=== PATIENT | female | born 1955 | race Caucasian/White ===

== ENCOUNTER → 2016-10-11 | Day surgery (SDC) | payer OTHER ==
[~2016-10-11] VITALS: Ht 167.6 cm; Wt 86.2 kg
[~2016-10-11] MED LIST: *HYDROmorphone PF 1 MG VIAL PERIprocedural Use ONLY ONE; *ONDANSETRON 4 MG VIAL PERIprocedural Use ONLY ONE; *diphenhydrAMINE HCL 50 MG/ML VIAL PERIprocedural Use ONLY ONE; ATROPINE SULFATE 1% OPHT SOLN 2 ML BTL ONE; BALANCED SALT SOLN OPHT IRRIG 15 ML BTL ONE; CELE200C PO; CHLORHEXIDINE GLUCONATE 2 % 1 PACK (2 CLOTHS) TOPICAL PRN; DEXAMETHASONE SOD PHOS 4 MG/ML VIAL ONE; EPINEPHrine HCL (1:1000) 1 MG/ML VIAL ONE; ESTRTAB12 PO; FLAX1200 PO; INSULIN HUMAN REGULAR 1,000 UNITS/10 ML VIAL SQ PRN; LACTATED RINGER'S 1000 ML IV PRN; MELA1TAB18 PO; METOPROLOL TARTRATE 25 MG TAB PO PRN; MIDAZOLAM HCL 2 MG/2 ML VIAL ONE; ONDANSETRON HCL 4 MG/2 ML VIAL IV PUSH ONE; POVIDONE IODINE 5% (ANTISEPSIS KIT) 4 APPLICATIONS EACH NARE PRN; PROPOFOL 200 MG/20 ML AMP IV ONE; SODIUM CHLORID 0.9% 500 ML IV PRN; STERILE WATER FOR INJ 20 ML VIAL ONE; TOBRAMYCIN/DEXAMETHASONE OPTH OINT 3.5 GM TUBE ONE; TRIAMCINOLONE ACETONIDE/PF 40 MG/ML OPTH VIAL ONE; TROPICAMIDE 1% OPHT SOLN 15 ML BTL ONE; ZOLP10TA3 PO; ZYRT10CA PO; ceFAZolin INJ 1,000 MG VIAL ONE; fentaNYL CITRATE 250 MCG/5 ML AMP ONE
[2016-10-11 09:09] VITALS: BP 140/79; PULSE 61; RESP 18; TEMP 98.1; O2SAT 96
[2016-10-11] MEDS: ATROPINE SULFATE 1% OPHT SOLN 5 ML BTL LEFT EYE SCH ×4 (09:30→11:25)
[2016-10-11] MEDS: TROPICAMIDE 1% OPTH SOLN 2 ML BTL LEFT EYE SCH ×4 (09:30→11:25)
[2016-10-11 09:38] LABS: AUTOMATED NEUTROPHIL # 2.8 TH/MM3 (1.8-7.7); BASOPHIL # 0.1 TH/MM3 (0-0.2); BASOPHIL % 1.2 % (0.0-2.0); EOSINOPHIL # 0.2 TH/MM3 (0-0.4); EOSINOPHIL % 4.2 % (0.0-4.0); HEMATOCRIT 40.6 % (35.0-46.0); HEMO FLAGS DIFF FINAL; LYMPH % 29.6 % (9.0-44.0); LYMPHOCYTE # 1.4 TH/MM3 (1.0-4.8); MEAN CELL VOLUME 93.2 FL (80.0-100.0); MEAN CORPUSCULAR HGB CONC 34.3 % (32.0-36.0); MONO % 5.9 % (0.0-8.0); NEUT % 59.1 % (16.0-70.0); PLATELET COUNT 242 TH/MM3 (150-450); RED BLOOD COUNT 4.35 MIL/MM3 (4.00-5.30); RED CELL DISTRIBUTION WIDTH 13.8 % (11.6-17.2); WHITE BLOOD COUNT 4.7 TH/MM3 (4.0-11.0)
[2016-10-11] MEDS: PHENYLEPHRINE HCL 2.5% OPTH SOLN 2 ML BTL LEFT EYE SCH ×4 (10:23→11:25)
[2016-10-11] MEDS: CYCLOPENTOLATE HCL 1% OPHT SOLN 2 ML BTL LEFT EYE SCH ×4 (10:23→11:25)
[2016-10-11 14:30] VITALS: BP 136/82; PULSE 74; RESP 18; O2SAT 97
--- NOTE | 2016-10-11 18:09 | MP ---
cc: UGO HAYWARD M.D. DATE OF SURGERY: 10/11/2016. PREOPERATIVE DIAGNOSIS: Visually significant epiretinal membrane with macular pucker, left eye. POSTOPERATIVE DIAGNOSIS: Visually significant epiretinal membrane with macular pucker, left eye. OPERATIVE PROCEDURE PERFORMED: Trans pars plana vitrectomy with membranectomy gas /fluid exchange, left eye. SURGEON: Ugo Hayward MD. ANESTHESIA: General laryngeal mask anesthesia. INDICATIONS FOR THE PROCEDURE: Ms. Curiel is a 61-year-old female with a history of decreased central vision and distortion in her left eye. She was found to have an epiretinal membrane and mild macular pucker and wished to proceed electively with vitrectomy and membrane peel to try and improve her visual functioning and lessen her distortion in the left eye. The risks and benefits of surgery were discussed with the patient and informed consent was obtained. No guarantee was made as to visual outcome. DESCRIPTION OF THE PROCEDURE IN DETAIL: She was brought to [facility] and placed on the operating table. Appropriate anesthesia monitoring devices were applied and she was placed under general anesthesia using a laryngeal mask. The left eye was identified as the operative site and then prepped and draped in the usual sterile fashion. A lid speculum was placed. The microscope was brought around and adjusted. At this point, an appropriate time-out was called with the surgical team agreeing to the surgical site and proposed procedure. Using the Jorge L 23-gauge vitrectomy system, the trocar cannulas were placed 3.5 mm posterior to the limbus after first displacing the conjunctiva and with a beveled entrance to the sclera. The first one was placed at approximately the three o'clock position and verified to be in the posterior chamber. An infusion cannula was affixed to it and turned on. Two additional trocar cannulas were placed at ten and two o'clock. A small amount of Kenalog was used to visualize the vitreous. The eye was then entered with the vitrectomy cutter and Endo scarfer light pipe. The flat contact lens was used for viewing. A core vitrectomy was carried out. Once the vitrectomy had been finished using a Rohan membrane scraper, the membrane was scraped up starting on the nasal side of the fovea and working out superiorly and inferotemporally and this was removed with aspiration using the soft tipped linear extrusion needle. The Biomet wide-angle viewing system was used to remove the peripheral vitreous and then the plugs were placed back in the eye and the fundus was inspected with indirect ophthalmoscopy aided by scleral depression. No retinal breaks were found. The soft tipped linear extrusion needle an BIOME wide angle viewing system was used to perform an air-fluid exchange. The air was then exchanged for a 24% mixture of SF6 gas which was slowly insufflated through the eye. Plugs were placed back in the cannulas and they were removed one by one with tamponade of the site with a cotton swab and diathermy to the overlying conjunctival wound. This left the eye with good pressure and no visible air leaks. Atropine drops were placed on the cornea followed by subconjunctival injections of Ancef 125 mg in 0.5 cc and Decadron 2 mg in 0.5 cc. The lid speculum was removed and the patient was undraped. TobraDex ointment was placed on the cornea and then the left eye was patched and shielded. The patient had the laryngeal mask removed in the room and was returned recovery in good condition laying on her right side. When awake and alert, she will be asked to assume a face-down position. MD AKI Euceda/QUENTIN /12:55 PM /5:47 PM
--- NOTE | 2016-10-11 18:30 | EKG ---
Date Performed: 10/11/2016 Time Performed: 09:45:34 PTAGE: 61 years EKG: SINUS BRADYCARDIA BORDERLINE ECG Compared to prior tracing no significant change PREVIOUS TRACING : 10/06/2015 06.56 DOCTOR: Dionte Victor Interpretating Date/Time 10/11/2016 18:27:23
== END | disposition home or self-care (01) ==
LOC: HSDC 08:26
PROVIDERS: ATTEND Ophthalmology
DX: H43.312 Vitreous membranes and strands, left eye (principal); H35.372 Puckering of macula, left eye; Z01.810 Encounter for preprocedural cardiovascular examination; Z01.818 Encounter for other preprocedural examination
CPT/HCPCS: 00145; 66990; 67041; 85025; 93005; J0171; J0690; J1100; J1170; J1200; J2250; J2405; J3010; J3300; J7120

== ENCOUNTER → 2017-06-18 | Outpatient (CLI) | payer OTHER ==
[~2017-06-18] MED LIST changes: -*HYDROmorphone PF 1 MG VIAL PERIprocedural Use ONLY ONE; -*ONDANSETRON 4 MG VIAL PERIprocedural Use ONLY ONE; -*diphenhydrAMINE HCL 50 MG/ML VIAL PERIprocedural Use ONLY ONE; +ADJUSTABLE COMM1 MIS; +ASPI1TAB57 PO; -ATROPINE SULFATE 1% OPHT SOLN 2 ML BTL ONE; -BALANCED SALT SOLN OPHT IRRIG 15 ML BTL ONE; +CALC1TAB87 PO; +CETI10 PO; -CHLORHEXIDINE GLUCONATE 2 % 1 PACK (2 CLOTHS) TOPICAL PRN; +CPMMACHINE; -DEXAMETHASONE SOD PHOS 4 MG/ML VIAL ONE; -EPINEPHrine HCL (1:1000) 1 MG/ML VIAL ONE; +FISH100020 PO; +FLAX1300 PO; -INSULIN HUMAN REGULAR 1,000 UNITS/10 ML VIAL SQ PRN; -LACTATED RINGER'S 1000 ML IV PRN; +MAGN400T3 PO; -METOPROLOL TARTRATE 25 MG TAB PO PRN; -MIDAZOLAM HCL 2 MG/2 ML VIAL ONE; +NEXI20CA PO; -ONDANSETRON HCL 4 MG/2 ML VIAL IV PUSH ONE; -POVIDONE IODINE 5% (ANTISEPSIS KIT) 4 APPLICATIONS EACH NARE PRN; -PROPOFOL 200 MG/20 ML AMP IV ONE; -SODIUM CHLORID 0.9% 500 ML IV PRN; -STERILE WATER FOR INJ 20 ML VIAL ONE; -TOBRAMYCIN/DEXAMETHASONE OPTH OINT 3.5 GM TUBE ONE; -TRIAMCINOLONE ACETONIDE/PF 40 MG/ML OPTH VIAL ONE; -TROPICAMIDE 1% OPHT SOLN 15 ML BTL ONE; +VITD400 PO; +WALKER WHEELS/F1 MIS; -ceFAZolin INJ 1,000 MG VIAL ONE; -fentaNYL CITRATE 250 MCG/5 ML AMP ONE
[2017-06-18 09:21] LABS: HEMATOCRIT 41.8 % (35.0-46.0); HEMOGLOBIN 14.2 GM/DL (11.6-15.3); MEAN CELL VOLUME 93.3 FL (80.0-100.0); MEAN CORPUSCULAR HEMOGLOBIN 31.6 PG (27.0-34.0); MEAN CORPUSCULAR HGB CONC 33.9 % (32.0-36.0); MEAN PLATELET VOLUME 9.3 FL (7.0-11.0); PLATELET COUNT 241 TH/MM3 (150-450); RED BLOOD COUNT 4.48 MIL/MM3 (4.00-5.30); RED CELL DISTRIBUTION WIDTH 13.7 % (11.6-17.2); WHITE BLOOD COUNT 5.9 TH/MM3 (4.0-11.0)
[2017-06-18 09:29] LABS: BILIRUBIN, URINE NEG (NEG); BLOOD, URINE NEG (NEG); GLUCOSE,URINE NEG (NEG); KETONE, URINE NEG (NEG); NITRITE,URINE NEG (NEG); PH, URINE 6.5 (5.0-8.5); SQUAMOUS EPITHELIAL CELL URINE <1 /hpf (0-5); URINE COLOR LIGHT-YELLOW (YELLW/STRAW); URINE LEUKOCYTE ESTERASE NEG (NEG)
[2017-06-18 09:48] LABS: ALBUMIN 4.1 GM/DL (3.4-5.0); AST (GOT) 14 U/L (15-37); BICARBONATE 27.8 MEQ/L (21.0-32.0); BLOOD UREA NITROGEN 17 MG/DL (7-18); CALCIUM 9.5 MG/DL (8.5-10.1); CHLORIDE 103 MEQ/L (98-107); CREATININE 0.89 MG/DL (0.50-1.00); GLOMERULAR FILTRATION RATE 64 ML/MIN (>89); GLUCOSE,FASTING 96 MG/DL (74-99); SODIUM (NA) 137 MEQ/L (136-145)
[2017-06-18 09:50] LABS: INTERNATIONAL NORMALIZED RATIO 1.1 RATIO; PROTHROMBIN TIME - PATIENT 10.9 SEC (9.8-11.6)
[2017-06-18 09:56] LABS: ALKALINE PHOSPHATASE 79 U/L (45-117); ALT (GPT) 22 U/L (10-53); TOTAL BILIRUBIN ADULT 1.3 MG/DL (0.2-1.0); TOTAL PROTEIN 7.4 GM/DL (6.4-8.2)
--- NOTE | 2017-06-18 15:30 | EKG ---
Date Performed: 06/18/2017 Time Performed: 08:58:50 PTAGE: 62 years EKG: Sinus rhythm . Normal ECG PREVIOUS TRACING : 10/11/2016 09.45 Compared to prior tracing no significant change DOCTOR: Reynaldo Vora Interpretating Date/Time 06/18/2017 15:29:44
== END ==
LOC: CPRE 08:01
PROVIDERS: ATTEND Surgery
DX: Z01.810 Encounter for preprocedural cardiovascular examination (principal); Z01.812 Encounter for preprocedural laboratory examination; M79.609 Pain in unspecified limb
CPT/HCPCS: 36415; 80053; 81001; 85027; 85610; 85730; 93005

== ENCOUNTER 2017-06-24 08:00 | Inpatient (IN) | payer OTHER ==
--- NOTE | 2017-06-19 18:46 | MH ---
cc: Jaskaran DALY M.D. DATE OF ADMISSION 06/24/2017 ADMISSION DIAGNOSIS Osteoarthritic degeneration right knee now for right total knee arthroplasty. HISTORY OF THE PRESENT ILLNESS This pleasant 63-year-old female is being admitted today for right total knee arthroplasty due to severe painful osteoarthritic degeneration of the right knee. PAST MEDICAL HISTORY Other past history: 1. The patient has a history of asthma. 2. Arthritis. 3. Anxiety. MEDICATIONS Currently takes: 1. Chewable multivitamins. 2. Glucosamine. 3. . PAST SURGICAL HISTORY Previous surgeries include: 1. Appendectomy. 2. Knee replacement on the left. 3. A left shoulder surgery in 1999. REVIEW OF SYSTEMS Noncontributory. FAMILY HISTORY Noncontributory. SOCIAL HISTORY The patient does not smoke or drink. ALLERGIES NO KNOWN ALLERGIES. PHYSICAL EXAMINATION GENERAL: We find a 63-year-old female well-developed, well-nourished, alert and oriented times three complaining of pain in her right knee. VITAL SIGNS: Blood pressure 122/76, pulse 78 and regular, respirations 16, temperature 98.1, pulse oximetry 96% on room air. HEENT: Eyes PERRL, EOMI. Ears, nose, mouth clear. NECK: Supple. LUNGS: Clear. HEART: Regular rate. ABDOMEN: Soft. Positive bowel sounds, nontender. EXTREMITIES: Reveal her right knee be tender with crepitance on range of motion. She is neurovascularly intact to her toes. IMPRESSION At this time is severe, painful, osteoarthritic degeneration right knee. PLAN Admission for right total knee arthroplasty today. The patient given prescription for postoperative pain and anticoagulation control in the office. JMD DYLLAN Garnett/KK /6:05 PM /6:19 PM
[~2017-06-24] VITALS: Ht 167.6 cm; Wt 89.8 kg
[~2017-06-24 08:00] MED LIST changes: -ADJUSTABLE COMM1 MIS; -CPMMACHINE; -FLAX1200 PO; -WALKER WHEELS/F1 MIS; -ZYRT10CA PO
--- NOTE | 2017-06-24 10:55 | HHI.FF ---
Face to Face Verification Diagnosis: (1) Status post total right knee replacement Physical Therapy Gait training Knee: Total knee, Protocol: Right, Full weight bearing Canvas Knee Splint: When in bed & 2 pillows btw thighs Nursing RN: 3 days/week x 2 weeks Nursing: Dressing changes Dressing Changes: Daily dressing change, 4x4s, Gauze, Paper tape I have seen patient Jaycee Curiel on 06/24/17. My clinical findings support the need for the requested home health care services because: Limited ability to care for self High risk of falls I certify that my clinical findings support that this patient is homebound because: Unsteady gait/balance Jaskaran Enamorado MD Jun 24, 2017 10:55
[2017-06-24] MEDS ORDERED: ADJUSTABLE COMM1 MIS (10:57)
[2017-06-24] MEDS ORDERED: WALKER WHEELS/F1 MIS (10:57)
[2017-06-24] MEDS ORDERED: CPMMACHINE (10:57)
[2017-06-24] MEDS ORDERED: ACETAMINOPHEN/HYDROcodone 325 MG/7.5 MG TAB PO PRN (11:00)
[2017-06-24] MEDS ORDERED: TEMAZEPAM 15 MG CAP PO PRN (11:00)
[2017-06-24] MEDS ORDERED: TRANEXAMIC ACID INJ 0 MG in SODIUM CHLORIDE 0.9% INJ 100 ML IV SCH (11:00)
[2017-06-24] MEDS ORDERED: ONDANSETRON HCL 4 MG/2 ML VIAL IVP PRN (11:00)
[2017-06-24] MEDS ORDERED: Post-op Orders (for Pharmacy) XX ONE (11:00)
[2017-06-24] MEDS ORDERED: ACETAMINOPHEN 325 MG TAB PO PRN (11:00)
[2017-06-24] MEDS ORDERED: NALOXONE HCL 0.4 MG/ML AMP IV PUSH PRN (11:00)
[2017-06-24] MEDS ORDERED: HYDROmorphone HCL PF 1 MG/ML VIAL IV PUSH PRN (11:00)
[2017-06-24] MEDS ORDERED: MELATONIN 5 MG TAB PO PRN (11:00)
[2017-06-24] MEDS ORDERED: POVIDONE IODINE 5% (ANTISEPSIS KIT) 4 APPLICATIONS EACH NARE PRN (11:15)
[2017-06-24] MEDS ORDERED: CHLORHEXIDINE GLUCONATE 2 % 1 PACK (2 CLOTHS) TOPICAL PRN (11:15)
[2017-06-24] MEDS ORDERED: METOPROLOL TARTRATE 25 MG TAB PO PRN (11:15)
[2017-06-24] MEDS ORDERED: SODIUM CHLORID 0.9% 500 ML IV PRN (11:15)
[2017-06-24] MEDS ORDERED: LACTATED RINGER'S 1000 ML IV PRN (11:15)
[2017-06-24] MEDS ORDERED: PROPOFOL 500 MG/50 ML INJ 100 ML ONE (11:19)
[2017-06-24] MEDS ORDERED: BUPIVACAINE HCL PF 0.5% 30 ML VIAL ONE (11:24)
[2017-06-24] MEDS ORDERED: ceFAZolin 2 GM PREMIX 50 ML IV SCH (11:30)
[2017-06-24] MEDS ORDERED: CHLORHEXIDINE GLUCONATE 4% SOLN 120 ML BTL TOPICAL SCH (11:30)
[2017-06-24] MEDS ORDERED: DEXAMETHASONE SOD PHOS 20 MG/5 ML VIAL ONE (11:34)
[2017-06-24] MEDS: VANCOMYCIN 1000 MG/NS 250 ML (for <70 kg) IV SCH ×2 (11:50)
[2017-06-24] MEDS ORDERED: LIDOCAINE HCL 1% PF 5 ML SYRINGE OTHER ONE (12:00)
[2017-06-24] MEDS ORDERED: PHENYLEPH/NS 1000 MCG/10 ML SYR IV ONE (12:00)
[2017-06-24] MEDS ORDERED: PROPOFOL 200 MG/20 ML AMP IV ONE (12:00)
[2017-06-24] MEDS ORDERED: LACTATED RINGER'S 1000 ML INJ 1,000 ML IV ONE (12:00)
[2017-06-24] MEDS ORDERED: TRANEXAMIC ACID INJ 897 MG in SODIUM CHLORIDE 0.9% INJ 100 ML IV SCH ×2 (13:00→16:00)
[2017-06-24] MEDS ORDERED: EXPAREL PERI-ARTICULAR INJECTION (TOTAL VOL. 120 ML) P-ARTICULR SCH ×2 (13:00)
[2017-06-24] MEDS ORDERED: ceFAZolin INJ 1,000 MG VIAL ONE (14:09)
[2017-06-24] MEDS: LACTATED RINGER'S 1000 ML INJ 1,000 ML IV SCH (15:00)
[2017-06-24] MEDS ORDERED: DO NOT ADM ANY ANTICOAGULANT DRUGS PRN (15:03)
[2017-06-24] MEDS ORDERED: MIDAZOLAM HCL 2 MG/2 ML VIAL ONE (15:09)
--- NOTE | 2017-06-24 15:35 | MP ---
cc: Jaskaran ENAMORADO M.D. DATE OF SURGERY: 06/24/2017 PREOPERATIVE DIAGNOSIS Osteoarthritic degeneration, right knee. POSTOPERATIVE DIAGNOSIS Osteoarthritic degeneration, right knee. SURGERY PERFORMED Right total knee arthroplasty using Consensus component size 4 femur, 2 tibia, 14 insert and size 2 patella with three batches of DePuy cement. SURGEON Dr. Enamorado. REGISTERED NURSE CARDIAC SANDRA Ridley ANESTHESIA Spinal and block. PROCEDURE: After successful induction of anesthesia, the patient is placed on the operating room table in the supine position. The knee is prepped and draped in the usual manner. A tourniquet is inflated at the upper thigh and set to 300 mmHg pressure after exsanguination of the lower extremity. A longitudinal incision is made extending from 3 inches proximal to the superior pole of the patella, across the patella in longitudinal fashion, and down past the insertion of the tibial tubercle into the proximal tibia. The incision is carried down through subcutaneous tissue along the medial aspect of the patella and retinaculum, down through the capsule to expose the knee joint. The patella and patellar tendon are freed up enough to allow the patella to be inverted and retracted off the lateral side of the knee joint. The knee joint is left exposed. Small osteophytes are removed. All soft tissue is removed to allow proper position of the femoral and tibial cutting jig guide. The first femoral jig is then inserted along the distal end of the femur after first measuring to decide whether this is a small, medium, or large component. The notch is then drilled and the tibial cutting guide inserted into the femoral cutting guide, along with the ankle brace to allow for proper measurement of the tibial cutting surface that needed to be resected. Pins are inserted into the tibial cutting jig and femoral cutting jig to hold them in place. An oscillating saw is then used to resect the surface of the tibia. The surface of the tibia is then completely removed using sharp and blunt dissection. The anterior and posterior cuts of the femur are then made as well using an oscillating saw through the cutting guide. All guides are then removed and the varus/valgus angulation cutting guide applied to the femur for proper measurement of the proper amount of valgus. The anterior cutting guide for the femur is then inserted at the anterior femoral cuts made. Next, the first block trial is inserted into the femur to allow for proper condyle drill holes to be made which are then made followed by removal of the bone between the condyles using an oscillating saw as well as the bone removed at the most posterior surface of the condyle. After this, this guide is removed and the chamfer cuts made using the chamfer cutting guide from both anterior and posterior. Next, the femoral trial is then inserted, the tibial surface reflected anterior to expose the tibial surface and a tibial stem guide is inserted after first measuring for a standard, standard plus, large, or large plus surface to be used. After the stem is impacted the trial tibial surface is applied followed by the trial meniscal components. After full range of motion is found with the appropriate length meniscal components varying the patella is prepared by resecting the posterior aspect of the patella using an oscillating saw, inserting a trial. The trial is then removed and the cruciate cutting guide applied using the bur to cut the cruciate cuts. After cruciate cuts are made all trials are removed. The wound is irrigated copiously with antibiotic solution and Water Pik and the actual components inserted into place using the aforementioned components. After the cement has hardened and the components are found to have full range of motion with no instability. Tourniquet was deflated. Total tourniquet time 64 minutes at 300 mmHg pressure. 120 ccs of Exparel was used around the knee joint for extra pain control. Meticulous hemostasis was achieved. Deep fascia was approximated with running #2 Quill, subcutaneous tissue approximated using interrupted running 2-0 and 3-0 Monocryl sutures, Steri-Strips, sterile dressing and knee immobilizer. No drain was utilized. The patient tolerated the procedure well and left the operating room in satisfactory condition. ESTIMATED BLOOD LOSS: 50 cc. COUNTS: Sponge and suture counts were correct. COMPONENTS: The components used were the aforementioned components. SANDRA Ridley was present during the entire procedure to include patient positioning and the procedure. The medical necessity of nurse practitioner acute care assistant was indicated in this case due to the surgical complexity of the case itself and during the surgical case the diploma pharmacy technician was working the back table while my tax accounting assistant SANDRA was directly assisting me. JMD DYLLAN Garnett/OLEGARIO /2:37 PM /3:06 PM
--- NOTE | 2017-06-24 15:37 | HHI.PR ---
Immediate Post Op Note Procedure Date: Jun 24, 2017 Pre Op Diagnosis: severe painful osteoarthritic degeneration of the right knee. Post Op Diagnosis: osteoarthritic degeneration of the right knee. Surgeon: Jaskaran Enamorado MD Print Washer(s): Thelma FLORES Procedure: Right Total Knee Arthroplasty Complications: none Specimen(s) removed: none Estimated blood loss: 100cc Anesthesia: Spinal Drains: None IVF Urinary Output (mLs): 0 (No motta) Tourniquet time (min at mmHg) 63 mins at 300 mm Hg Patient to: PACU Patient Condition: Good Implant/Devices: SEE IMPLANT LOG (if applicable) Date/Time of Procedure: SEE SURGICAL CARE RECORD Thelma Gaffney Jun 24, 2017 15:37
--- NOTE | 2017-06-24 15:49 | RADRPT ---
EXAM DATE/TIME: 06/24/2017 15:19 [facility] COMPARISON: No previous studies available for comparison. INDICATIONS : Post op right knee MEDICAL HISTORY : None. SURGICAL HISTORY : right knee replaced ENCOUNTER: Initial ACUITY: 1 day PAIN SCORE: 0/10 LOCATION: Right knee FINDINGS: There is surgical placement of a total knee prosthesis which appears to be well-seated. CONCLUSION: Well-seated total knee prosthesis Stanton Zaragoza MD on June 24, 2017 at 15:46 Board Certified Radiologist. This report was verified electronically.
[2017-06-24] MEDS ORDERED: *HYDROmorphone PF 1 MG VIAL PERIprocedural Use ONLY ONE ×2 (16:17→16:57)
[2017-06-24] MEDS: HYDROmorphone HCL PF 2 MG/ML VIAL IV PRN ×2 (18:18→22:00)
[2017-06-24 20:00] VITALS: BP 120/70; PULSE 94; RESP 17; TEMP 96.8; O2SAT 96
[2017-06-24] MEDS: ZOLPIDEM TARTRATE 10 MG TAB PO PRN (22:41)
[2017-06-24 23:29] VITALS: BP 107/69; PULSE 88; RESP 17; TEMP 97; O2SAT 94
[2017-06-25] VITALS (7 sets, daily range): BP systolic 101–117; BP diastolic 57–63; PULSE 73–88; RESP 17–19; TEMP 96.3–97.7; O2SAT 93–98
[2017-06-25] MEDS: LACTATED RINGER'S 1000 ML INJ 1,000 ML IV SCH ×2 (00:20→11:49)
[2017-06-25] MEDS: diphenhydrAMINE HCL 50 MG/ML VIAL IV PUSH PRN ×2 (00:24→06:21)
[2017-06-25] MEDS: HYDROmorphone HCL PF 2 MG/ML VIAL IV PRN ×2 (04:07→12:08)
[2017-06-25] MEDS: CETIRIZINE HCL 10 MG TAB PO SCH (08:46)
[2017-06-25] MEDS: CELECOXIB 200 MG CAP PO SCH (08:48)
[2017-06-25] MEDS: CHOLECALCIFEROL (VIT D3) 400 UNIT TAB PO SCH (08:48)
[2017-06-25] MEDS: MAGNESIUM OXIDE 400 MG TAB PO SCH (08:51)
[2017-06-25] MEDS: PANTOPRAZOLE SOD 20 MG DELAYED RELEASE TAB PO SCH (08:51)
[2017-06-25] MEDS: CALCIUM/VITAMIN D 250 MG/125 U TAB PO SCH (08:55)
[2017-06-25 09:00] LABS: HEMATOCRIT 37.1 % (35.0-46.0); HEMOGLOBIN 12.7 GM/DL (11.6-15.3)
[2017-06-25] MEDS ORDERED: NON-FORMULARY DRUG (Omega-3 Fatty Acids (Fish Oil 1000 mg) 1 CAP) PO SCH (09:00)
[2017-06-25] MEDS ORDERED: NATURAL PRODUCTS PO SCH (09:00)
[2017-06-25] MEDS ORDERED: FLAXSEED PO SCH (09:00)
--- NOTE | 2017-06-25 11:14 | PD.ORT.PN ---
Subjective Subjective Remarks Pt somewhat painful today. Objective Vitals Vital Signs Date Time Temp Pulse Resp B/P (MAP) Pulse Ox O2 Delivery O2 Flow Rate FiO2 06/25/17 08:21 96 21 06/25/17 07:25 97.1 73 19 104/57 (73) 97 06/25/17 04:00 97.1 88 17 101/60 (74) 93 06/24/17 23:29 97.0 88 17 107/69 (82) 94 06/24/17 20:00 96.8 94 17 120/70 (87) 96 06/24/17 17:00 97.8 86 15 118/64 (82) 99 Nasal Cannula 3 06/24/17 16:30 82 15 117/65 (82) 99 Nasal Cannula 3 06/24/17 16:00 82 15 131/92 (105) 99 Nasal Cannula 3 06/24/17 15:45 74 16 127/62 (83) 99 Nasal Cannula 3 06/24/17 15:30 73 16 120/62 (81) 98 Nasal Cannula 3 06/24/17 15:15 79 15 106/59 (75) 96 Nasal Cannula 3 06/24/17 15:02 97.7 80 15 99/65 (76) 95 Nasal Cannula 3 06/24/17 11:23 98.9 80 20 137/91 (106) 97 I/O 06/24/17 06/24/17 06/24/17 06/25/17 06/25/17 06/25/17 07:00 15:00 23:00 07:00 15:00 23:00 Intake Total 1935 ml 1484 ml Output Total 50 ml Balance 1885 ml 1484 ml Intake Oral 360 ml 240 ml IV Total 75 ml 1244 ml Other 1500 ml Output Urine Total 0 ml Estimated Blood Loss 50 ml # Voids 1 1 # Bowel Movements 0 0 Result Diagram: 06/25/17 0728 Imaging Last Impressions Knee X-Ray 06/24/17 1049 Signed Impressions: Service Date/Time: Saturday, June 24, 2017 15:19 - CONCLUSION: Well-seated total knee prosthesis Stanton Zaragoza MD Objective Remarks In bed at present time. NV intact. No calf tenderness. Assessment & Plan Ortho Post Op Day #: 1 Problem List: Assessment and Plan Doing well overall. Cont PT and wound care. Home possibly tomorrow with HHC and PT. Jaskaran Enamorado MD Jun 25, 2017 11:13
[2017-06-25] MEDS: MAGNESIUM HYDROXIDE SUSP 30 ML CUP PO SCH ×2 (12:08→21:06)
[2017-06-25] MEDS: SENNOSIDES 8.6 MG TAB PO SCH ×2 (12:09→21:06)
[2017-06-25] MEDS: ASPIRIN EC 81 MG TABEC PO SCH (14:27)
[2017-06-25] MEDS: APIXABAN 2.5 MG TABLET PO SCH (14:28)
[2017-06-25] MEDS: ACETAMINOPHEN/HYDROcodone 325 MG/7.5 MG TAB PO PRN ×2 (14:29→18:39)
[2017-06-25] MEDS: MULTIVITAMINS/MINERALS THERAPEUTIC TAB PO SCH (21:04)
[2017-06-25] MEDS: DOCUSATE SODIUM 100 MG CAP PO SCH (21:04)
[2017-06-25] MEDS: ZOLPIDEM TARTRATE 10 MG TAB PO PRN (21:04)
[2017-06-26] VITALS: BP 100/52; PULSE 83; RESP 19; TEMP 98.5; O2SAT 94
[2017-06-26] MEDS: LACTATED RINGER'S 1000 ML INJ 1,000 ML IV SCH ×3 (00:19→20:27)
[2017-06-26] MEDS: APIXABAN 2.5 MG TABLET PO SCH ×2 (02:12→14:53)
[2017-06-26] MEDS: ACETAMINOPHEN/HYDROcodone 325 MG/7.5 MG TAB PO PRN ×2 (02:15→07:37)
--- NOTE | 2017-06-26 07:57 | PD.ORT.PN ---
Subjective Subjective Remarks Pt somewhat painful today. Objective Vitals Vital Signs Date Time Temp Pulse Resp B/P (MAP) Pulse Ox O2 Delivery O2 Flow Rate FiO2 06/26/17 00:00 98.5 83 19 100/52 (68) 94 06/25/17 20:00 97.7 84 19 117/59 (78) 95 06/25/17 18:05 97 21 06/25/17 15:43 96.3 73 19 112/63 (79) 97 06/25/17 11:32 97.6 82 19 102/60 (74) 98 06/25/17 08:21 96 21 I/O 06/25/17 06/25/17 06/25/17 06/26/17 06/26/17 06/26/17 07:00 15:00 23:00 07:00 15:00 23:00 Intake Total 1484 ml 800 ml 300 ml 220 ml Output Total 320 ml 400 ml Balance 1484 ml 800 ml -20 ml -180 ml Intake Oral 240 ml 800 ml 300 ml 220 ml IV Total 1244 ml Output Urine Total 320 ml 400 ml # Voids 1 2 # Bowel Movements 0 0 0 Result Diagram: 06/25/17 0728 Imaging Last Impressions Knee X-Ray 06/24/17 1049 Signed Impressions: Service Date/Time: Saturday, June 24, 2017 15:19 - CONCLUSION: Well-seated total knee prosthesis Stanton Zaragoza MD Objective Remarks In bed at present time. NV intact. No calf tenderness. Assessment & Plan Ortho Post Op Day #: 2 Problem List: Assessment and Plan Doing well overall. Cont PT and wound care. Home possibly tomorrow with HHC and PT. Jaskaran Enamorado MD Jun 26, 2017 07:57
[2017-06-26 08:00] VITALS: BP 117/63; PULSE 83; RESP 16; TEMP 98.9; O2SAT 94
[2017-06-26] MEDS ORDERED: oxyCODONE/ACETAMINOPHEN 10 MG/325 MG TAB PO PRN (08:00)
[2017-06-26] MEDS: MULTIVITAMINS/MINERALS THERAPEUTIC TAB PO SCH ×2 (08:11→20:23)
[2017-06-26] MEDS: CELECOXIB 200 MG CAP PO SCH (08:11)
[2017-06-26] MEDS: DOCUSATE SODIUM 100 MG CAP PO SCH ×2 (08:11→20:23)
[2017-06-26] MEDS: SENNOSIDES 8.6 MG TAB PO SCH ×2 (08:12→20:23)
[2017-06-26] MEDS: CHOLECALCIFEROL (VIT D3) 400 UNIT TAB PO SCH (08:12)
[2017-06-26] MEDS: CETIRIZINE HCL 10 MG TAB PO SCH (08:12)
[2017-06-26] MEDS: MAGNESIUM OXIDE 400 MG TAB PO SCH (08:12)
[2017-06-26] MEDS: PANTOPRAZOLE SOD 20 MG DELAYED RELEASE TAB PO SCH (08:13)
[2017-06-26] MEDS: CALCIUM/VITAMIN D 250 MG/125 U TAB PO SCH (08:13)
[2017-06-26] MEDS: ASPIRIN EC 81 MG TABEC PO SCH (08:13)
[2017-06-26] MEDS: MAGNESIUM HYDROXIDE SUSP 30 ML CUP PO SCH ×2 (08:14→20:23)
[2017-06-26 09:29] LABS: HEMATOCRIT 34.3 % (35.0-46.0); HEMOGLOBIN 11.7 GM/DL (11.6-15.3)
[2017-06-26] MEDS ORDERED: BACITRACIN OINT 0.9 GM PKT TOP PRN (10:15)
[2017-06-26] MEDS: oxyCODONE/ACETAMINOPHEN 10 MG/325 MG TAB PO PRN ×4 (10:48→22:57)
[2017-06-26 10:56] VITALS: O2SAT 94
[2017-06-26] MEDS ORDERED: PROMETHAZINE HCL 25 MG TAB PO PRN (13:45)
[2017-06-26 16:00] VITALS: BP 122/58; PULSE 87; RESP 16; TEMP 99.6; O2SAT 96
[2017-06-26] MEDS: diphenhydrAMINE HCL 25 MG CAP PO PRN (18:51)
[2017-06-26] MEDS: ZOLPIDEM TARTRATE 10 MG TAB PO PRN (20:23)
[2017-06-26 20:39] VITALS: BP 109/58; PULSE 71; RESP 18; TEMP 98.7; O2SAT 95
[2017-06-26 23:00] VITALS: BP 118/56; PULSE 86; RESP 18; TEMP 98.9; O2SAT 92
[2017-06-27] MEDS: oxyCODONE/ACETAMINOPHEN 10 MG/325 MG TAB PO PRN ×2 (03:10→06:36)
[2017-06-27] MEDS: APIXABAN 2.5 MG TABLET PO SCH ×2 (03:10→13:43)
[2017-06-27 04:25] VITALS: BP 102/59; PULSE 84; RESP 18; TEMP 98.3; O2SAT 93
[2017-06-27 08:00] VITALS: BP 115/71; PULSE 83; RESP 17; TEMP 97.5; O2SAT 93
[2017-06-27] MEDS: DOCUSATE SODIUM 100 MG CAP PO SCH (09:00)
[2017-06-27] MEDS: ASPIRIN EC 81 MG TABEC PO SCH (10:53)
[2017-06-27] MEDS: SENNOSIDES 8.6 MG TAB PO SCH (10:53)
[2017-06-27] MEDS: MULTIVITAMINS/MINERALS THERAPEUTIC TAB PO SCH (10:53)
[2017-06-27] MEDS: PANTOPRAZOLE SOD 20 MG DELAYED RELEASE TAB PO SCH (10:54)
[2017-06-27] MEDS: CALCIUM/VITAMIN D 250 MG/125 U TAB PO SCH (10:54)
[2017-06-27] MEDS: CETIRIZINE HCL 10 MG TAB PO SCH (10:54)
[2017-06-27] MEDS: CELECOXIB 200 MG CAP PO SCH (10:54)
[2017-06-27] MEDS: CHOLECALCIFEROL (VIT D3) 400 UNIT TAB PO SCH (10:54)
[2017-06-27] MEDS: MAGNESIUM OXIDE 400 MG TAB PO SCH (10:54)
[2017-06-27] MEDS: MAGNESIUM HYDROXIDE SUSP 30 ML CUP PO SCH (10:55)
[2017-06-27] MEDS: LACTATED RINGER'S 1000 ML INJ 1,000 ML IV SCH (10:55)
[2017-06-27] MEDS: diphenhydrAMINE HCL 25 MG CAP PO PRN (10:59)
--- NOTE | 2017-06-27 11:28 | PD.ORT.PN ---
Subjective Subjective Remarks Pt less painful today. Objective Vitals Vital Signs Date Time Temp Pulse Resp B/P (MAP) Pulse Ox O2 Delivery O2 Flow Rate FiO2 06/27/17 08:00 97.5 83 17 115/71 (86) 93 06/27/17 04:25 98.3 84 18 102/59 (73) 93 06/26/17 23:00 98.9 86 18 118/56 (76) 92 06/26/17 20:39 98.7 71 18 109/58 (75) 95 06/26/17 16:00 99.6 87 16 122/58 (79) 96 I/O 06/26/17 06/26/17 06/26/17 06/27/17 06/27/17 06/27/17 06:59 14:59 22:59 06:59 14:59 22:59 Intake Total 220 ml 1080 ml 480 ml Output Total 400 ml Balance -180 ml 1080 ml 480 ml Intake Oral 220 ml 1080 ml 480 ml Output Urine Total 400 ml # Voids 5 1 # Bowel Movements 0 0 0 Result Diagram: 06/26/17 0845 Imaging Last Impressions Knee X-Ray 06/24/17 1049 Signed Impressions: Service Date/Time: Saturday, June 24, 2017 15:19 - CONCLUSION: Well-seated total knee prosthesis Stanton Zaragoza MD Objective Remarks In bed at present time. NV intact. No calf tenderness. Assessment & Plan Ortho Post Op Day #: 3 Problem List: Assessment and Plan Doing well overall. Cont PT and wound care. Home today with HHC and PT. Jaskaran Enamorado MD Jun 27, 2017 11:28
--- NOTE | 2017-06-27 11:31 | HHI.DS ---
Discharge Summary Admission Date Jun 24, 2017 at 10:36 Discharge Date: Jun 27, 2017 Admitting Diagnosis Osteoarthritic degeneration right knee Diagnosis: (1) Status post total right knee replacement Diagnosis: Principal ICD Codes: Z96.651 - Presence of right artificial knee joint Brief History This is a 62 year old female patient CBC/BMP: 06/26/17 0845 Significant Findings Laboratory Tests Test 06/25/17 07:28 06/26/17 08:45 Hematocrit 34.3 % (35.0-46.0) PE at Discharge In bed at present time. NV intact. No calf tenderness. Hospital Course Patient underwent a right total knee arthroplasty on day of admission. She received a course of prophylactic IV antibiotics and within 23 hours started on anticoagulation therapy. She continued to improve remaining afebrile with stable vital signs. She tolerated food and fluid well on by mouth pain meds and physical therapy was discharged on third postoperative day in good conditions with instructions for home healthcare and physical therapy and follow -up in the office. Pt Condition on Discharge: Good Discharge Disposition: Disch w/ Home Health Serv Discharge Instructions Diet Instructions: As Tolerated, No Restrictions Activities You Can Perform: Partial Weight Bearing, Shower Only-No Bath Activities to Avoid: Bathing, Driving Jaskaran Enamorado MD Jun 27, 2017 11:31
[2017-06-27 12:00] VITALS: BP 111/53; PULSE 95; RESP 18; TEMP 96.9; O2SAT 94
== END 2017-06-27 14:47 | disposition home health service (06) | DRG 470 ==
LOC: HSDI 10:36 → N06B 17:31
PROVIDERS: ADMIT Surgery; ATTEND Surgery
PROC: 3E0T3BZ Introduction of Anesthetic Agent into Peripheral Nerves and Plexi, Percutaneous Approach (ICD-10-PCS; 2017-06-24)
PROC: 0SRC0J9 Replacement of Right Knee Joint with Synthetic Substitute, Cemented, Open Approach (ICD-10-PCS; principal; 2017-06-24 12:05)
DX: M17.11 Unilateral primary osteoarthritis, right knee (principal); J45.909 Unspecified asthma, uncomplicated; L29.9 Pruritus, unspecified; R11.0 Nausea
CPT/HCPCS: 73560; 76937; 85014; 85018; 86850; 86900; 86901; 94150; C1776; C9290; J0690; J1100; J1170; J1200; J2250; J2370; J3370; J7050; J7120; L1830; Q0169